=== PATIENT | male | born 2005 | race Caucasian/White ===

== ENCOUNTER 2024-06-24 09:36 | Emergency (ER) | payer OTHER ==
[2024-06-24 10:12] LABS: BASO # 0.03 K/mm3 (0.02-0.10); EOS # 0.08 K/mm3 (0.04-0.40); EOS % 1.3 % (0.0-4.0); HEMOGLOBIN 15.2 g/dL (12.5-16.1); LYMPH# 1.85 K/mm3 (1.50-4.00); MEAN CELL VOLUME 91 fl (78-95); MEAN CORPUSCULAR HEMOGLOBIN 31 pg (26-32); MEAN CORPUSCULAR HGB CONC 34 g/dL (33-37); MEAN PLATELET VOLUME 9.1 fl (7.4-10.4); MONO # 0.43 K/mm3 (0.20-0.80); NEU # 3.95 K/mm3 (1.40-6.50); PLATELET COUNT 265 K/mm3 (130-400); RED BLOOD COUNT 4.94 M/mm3 (4.20-5.60); RED CELL DISTRIBUTION WIDTH 12.6 % (11.5-14.5); WHITE BLOOD COUNT 6.4 K/mm3 (4.8-10.8)
[2024-06-24 10:26] LABS: ALBUMIN 4.5 g/dL (3.5-5.0); SODIUM 139 mmol/L (136-145)
[2024-06-24 10:27] LABS: CALCIUM 9.2 mg/dL (8.3-10.5)
[2024-06-24 10:29] LABS: GLUCOSE 112 mg/dL (75-110); TOTAL PROTEIN 7.3 g/dL (6.4-8.3)
[2024-06-24 10:30] LABS: CARBON DIOXIDE 22 mmol/L (22-29); TOTAL BILIRUBIN 0.7 mg/dL (0.2-1.2)
[2024-06-24 10:34] LABS: AST-SGOT 22 U/L (5-34)
[2024-06-24 10:35] LABS: ALT/SGPT 25 U/L (0-55)
[2024-06-24 10:48] LABS: TROPONIN-I < 0.030 ng/mL (0.00-0.033)
[2024-06-24 10:55] VITALS: BP 116/72
== END 2024-06-24 11:03 | disposition home or self-care (01) ==
LOC: ED 09:36
PROVIDERS: Family Medicine
DX: M94.0 Chondrocostal junction syndrome [Tietze] (principal); F17.210 Nicotine dependence, cigarettes, uncomplicated